=== PATIENT | female | born 1995 | race Caucasian/White ===

== ENCOUNTER 2021-05-25 10:03 | Emergency (ER) | payer OTHER ==
[~2021-05-25] VITALS: Ht 162.6 cm; Wt 62.8 kg
[2021-05-25 10:15] VITALS: BP 119/74
--- NOTE | 2021-05-25 10:19 | NUR ---
PATIENT AMBULATED TO BED 9.
--- NOTE | 2021-05-25 10:25 | NUR ---
26 Y/O FEMALE HERE FOR STD CHECK. PT DENIES DYSURIA, DENIES HEMATURIA, DENIES DISCHARGE, DENIES PAIN, DENIES SOB, DENIES CHEST PAIN, DENIES N/V/D, DENIES FEVER/CHILLS. PT STATED HER BOYFRIEND HAS STD. DENIES PMH NKA
--- NOTE | 2021-05-25 11:49 | NUR ---
DR. ROGERS WITH PT AT BEDSIDE FOR FURTHER EVALUATION.
[2021-05-25] MEDS ORDERED: DOXY-690 PO (12:10)
[2021-05-25] MEDS ORDERED: cefTRIAXone 500 MG VIAL ONE (12:14)
[2021-05-25] MEDS ORDERED: LIDOCAINE MPF 1% 5 ML ONE (12:14)
[2021-05-25] MEDS: DOXYCYCLINE 100 MG CAP PO ONE (12:21)
[2021-05-25] MEDS: cefTRIAXone 500 MG in LIDOCAINE MPF 1% 1 ML IM ONE (12:22)
[2021-05-25 12:30] VITALS: BP 119/74
--- NOTE | 2021-05-25 12:31 | NUR ---
Patient discharged with v/s stable. Written and verbal after care instructions given CHLMAYDIA AND STD TESTING and explained. Patient alert, oriented and verbalized understanding of instructions. Ambulatory with steady gait. All questions addressed prior to discharge. ID band removed. Patient advised to follow up with PMD. Rx of VIBRAMYCIN given. Patient educated on indication of medication including possible reaction and side effects. Opportunity to ask questions provided and answered.
[2021-05-25 14:11] LABS: APPEARANCE,URINE SL CLOUDY (CLEAR); BILIRUBIN,URINE 1+ (NEGATIVE); BLOOD, URINE NEGATIVE (NEGATIVE); COLOR,URINE OTHER (YELLOW); LEUKOCYTE ESTERASE ,URINE NEGATIVE (NEGATIVE); NITRITE, URINE NEGATIVE (NEGATIVE); UGLUCOSE NEGATIVE (NEGATIVE)
== END 2021-05-25 12:30 | disposition home or self-care (01) ==
LOC: MED 10:03
DX: Z20.2 Contact with and (suspected) exposure to infections with a predominantly sexual mode of transmission (principal); Z29.9 Encounter for prophylactic measures, unspecified; Z79.2 Long term (current) use of antibiotics
CPT/HCPCS: 36415; 81003; 81025; 87491; 96372; 99283; J0696; J2001